=== PATIENT | female | born 1950 | race Caucasian/White ===

== ENCOUNTER → 2023-12-05 14:49 | Outpatient (REF) | payer MEDICARE, OTHER, SELFPAY | LOC: WDC 14:49 | PROVIDERS: ATTENDING PHYSICIAN Family Medicine | DX: M25.50 Pain in unspecified joint (principal); M85.89 Other specified disorders of bone density and structure, multiple sites; Z12.31 Encounter for screening mammogram for malignant neoplasm of breast | CPT/HCPCS: 77063; 77067; 77080 ==

== ENCOUNTER → 2024-02-02 12:28 | Outpatient (REF) | payer MEDICARE, OTHER, SELFPAY | LOC: HWRAD 12:28 | PROVIDERS: ATTENDING PHYSICIAN Nurse Practitioner Adult Health; FAMILY PHYSICIAN Family Medicine | DX: N95.0 Postmenopausal bleeding (principal) | CPT/HCPCS: 76830; 76856 ==

== ENCOUNTER → 2024-03-21 06:28 | Day surgery (SDC) | payer MEDICARE, OTHER, SELFPAY | LOC: GI 06:28 | PROVIDERS: ATTENDING PHYSICIAN Internal Medicine Gastroenterology; FAMILY PHYSICIAN Family Medicine | DX: Z12.11 Encounter for screening for malignant neoplasm of colon (principal); D12.3 Benign neoplasm of transverse colon; K57.30 Diverticulosis of large intestine without perforation or abscess without bleeding; K64.8 Other hemorrhoids; Z86.010 Personal history of colon polyps | CPT/HCPCS: 45385; 88305 ==

== ENCOUNTER → 2024-03-29 17:31 | Outpatient (REF) | payer MEDICARE, OTHER, SELFPAY | LOC: CLAB 17:31 | PROVIDERS: ATTENDING PHYSICIAN Obstetrics & Gynecology Gynecology | DX: N95.0 Postmenopausal bleeding (principal) | CPT/HCPCS: 88305 ==

== ENCOUNTER → 2024-06-10 17:56 | Outpatient (REF) | payer MEDICARE, OTHER, SELFPAY | LOC: RAD 17:56 | PROVIDERS: ATTENDING PHYSICIAN Nurse Practitioner Family; FAMILY PHYSICIAN Family Medicine | DX: M25.531 Pain in right wrist (principal) | CPT/HCPCS: 73110 ==

== ENCOUNTER → 2024-07-11 15:54 | Outpatient (REF) | payer MEDICARE, OTHER, SELFPAY | LOC: MRI 3T 15:54 | PROVIDERS: ATTENDING PHYSICIAN Specialist; FAMILY PHYSICIAN Family Medicine | DX: M17.12 Unilateral primary osteoarthritis, left knee (principal) | CPT/HCPCS: 73721 ==

== ENCOUNTER 2024-12-17 14:45 | Emergency (ER) | payer MEDICARE, OTHER, SELFPAY ==
[2024-12-17 15:02] VITALS: BP 168/70
--- NOTE | 2024-12-17 15:05 | ED.GENMED ---
ED Provider Triage
<Ronald Pineda PA-C - Last Filed: 12/17/24 15:08>
-
Patient seen by provider in Triage?: Seen in Triage
Attestation: A medical screening examination has been initiated by a qualified medical provider. Based on the assessment performed at this time, it has been determined that an emergent medical condition may exist and the patient has been informed
that further medical evaluation and possible additional diagnostic testing may be needed.
HPI: 74-year-old female presenting the ER for evaluation of dizziness that started around 10:00, describes a sensation to be as if everything is spinning. States closing her eyes makes symptoms worse. She is nauseous but no vomiting. Denies any
falls or traumatic injuries. No headache. Labs and EKG ordered. Meclizine and Zofran ordered for symptomatic relief.
GENERAL: Alert , in no apparent distress
EYE: No visual abnormalities.
NECK: Trachea midline
ENT: No visible abnormalities.
LUNGS: No acute respiratory distress
NEUROLOGICAL: Alert and oriented
SKIN: Skin intact. No visible changes.
MUSCULOSKELETAL: Moving extremities normally
PSYCH: Normal and appropriate interaction.
This is a medical evaluation conducted in person to initiate diagnostic evaluation and provide initial therapeutics. Please see further documentation by the treating clinician.
History of Present Illness
<Ronald Pineda PA-C - Last Filed: 12/17/24 15:08>
General
Chief Complaint: Dizziness
Time Seen by Provider: 12/17/24 17:50
<Reina Moore, MEDICAL TECHNICAL WRITER - Last Filed: 12/17/24 23:53>
General
Source: patient
Exam Limitations: none
Nursing documentation reviewed up to this point in time: agreed with
History of Present Illness
History of Present Illness:
74 yo female with history of balance problems, dizziness, headaches, and chronic neck pain, hypertension, HLD, GERD, hypothyroid, anemia, anxiety/depression presents stating 'I have been dizzy all day.' She states she woke at 10 AM with the room
spinning, nauseous but no vomiting. While she was in the waiting room her dizziness subsided when she walked back to her exam room and lay down it suddenly returned. She was given Zofran on initial triage evaluation which she states helped her
nausea.
She does have a headache but declines when Tylenol offered as she states she will take it at home, she does have a history of headaches and this is similar to her typical headache
She denies change in vision, denies imbalance or any trouble walking, denies any weakness. She denies ear pain, sore throat or any recent symptoms of infection.
Past History
<Ronald Pineda PA-C - Last Filed: 12/17/24 15:08>
Past History
ED Past Medical History: Hypothyroidism and Other (Reviewed documented. PMHXwith pt. All ok except glaucoma. States she had it 'fixed.')
ED Past Surgical History: Appendectomy, , Tonsilectomy and Other
Social History
Tobacco: Non-smoker
Personal:
Living: with family
Employment: Not employed
Family History
Family History: Other (Noncontributory)
Review of Systems
<Reina Moore, MEDICAL TECHNICAL WRITER - Last Filed: 12/17/24 23:53>
Review of Systems
Allergies reviewed?: Yes
All Other Systems: ROS reviewed and negative except as documented in HPI and ROS
Constitutional: Denies fever or fatigue
EENT: Denies sore throat
Cardiac: Denies chest pain or syncope
ABD/GI: Reports nausea; Denies abdominal pain, vomiting or diarrhea
: Denies dysuria, frequency, difficulty voiding or urgency
Musculoskeletal: Reports no symptoms
Skin: Reports no symptoms
Neurological: Reports dizzy and headache; Denies weakness or numbness
Phy Exam
<Reina Moore MEDICAL TECHNICAL WRITER - Last Filed: 12/17/24 23:53>
Physical Exam
Physical Exam:
GENERAL: No acute distress. A&Ox3.
CONSTITUTIONAL: Afebrile.
EYES: clear, conjunctivae normal, PERRLA, no notable nystagmus
ENMT: moist mucus membranes, Pharynx nl, TMs normal
RESPIRATORY: Regular respirations, nonlabored, lungs clear.
CARDIOVASCULAR: Regular rate and rhythm, no murmurs, no rubs.
GI: Soft, nontender, normal BS
MUSCULOSKELETAL: Moves with ease. Well perfused.
SKIN: Warm, dry, pink
PSYCH: Normal mood and affect. Well kept, interactive and appropriate
NEUROLOGIC: Awake, alert and oriented. No focal neurological deficits. Ambulates well with steady gait
Course
<Ronald Pineda PA-C - Last Filed: 12/17/24 15:08>
Orders/Labs/Results
Orders:
Orders
12/17/24 15:06
Electrocardiogram (*1) Urgent
Reason for Study: Vertigo / Dizzy
EKG- Treatment ONCE
12/17/24 15:07
Meclizine [Antivert] 25 mg PO NOW STA
Ondansetron Orally Disint [Zofran Odt (Orally Disintegrating)] 4 mg PO NOW STA
12/17/24 15:19
Complete Blood Count/With Diff Urgent
Comprehensive Metabolic Panel Urgent
Troponin I Urgent
Abnormal Lab Results
12/17/24
15:19
MCHC 32.7 L g/dL
(33.0-37.0)
Glucose 108 H mg/dl
(70-99)
12/17/24 15:19
12/17/24 15:19
Vital Signs
Initial and Last Documented VS:
Initial Vital Signs
Temp Pulse Resp BP Pulse Ox
97.6 F 77 18 168/70 99
12/17/24 15:02 12/17/24 15:02 12/17/24 15:02 12/17/24 15:02 12/17/24 15:02
Last Documented Vital Signs
Temp Pulse Resp BP Pulse Ox
98.1 F 70 18 129/64 98
12/17/24 18:00 12/17/24 18:00 12/17/24 18:00 12/17/24 18:00 12/17/24 18:00
<Reina Moore, MEDICAL TECHNICAL WRITER - Last Filed: 12/17/24 23:53>
Orders/Labs/Results
Orders:
Orders
12/17/24 15:06
Electrocardiogram (*1) Urgent
Reason for Study: Vertigo / Dizzy
EKG- Treatment ONCE
12/17/24 15:07
Meclizine [Antivert] 25 mg PO NOW STA
Ondansetron Orally Disint [Zofran Odt (Orally Disintegrating)] 4 mg PO NOW STA
12/17/24 15:19
Complete Blood Count/With Diff Urgent
Comprehensive Metabolic Panel Urgent
Troponin I Urgent
Abnormal Lab Results
12/17/24
15:19
MCHC 32.7 L g/dL
(33.0-37.0)
Glucose 108 H mg/dl
(70-99)
12/17/24 15:19
12/17/24 15:19
Vital Signs
Initial and Last Documented VS:
Initial Vital Signs
Temp Pulse Resp BP Pulse Ox
97.6 F 77 18 168/70 99
12/17/24 15:02 12/17/24 15:02 12/17/24 15:02 12/17/24 15:02 12/17/24 15:02
Last Documented Vital Signs
Temp Pulse Resp BP Pulse Ox
98.1 F 70 18 129/64 98
12/17/24 18:00 12/17/24 18:00 12/17/24 18:00 02/18/25 18:00 12/17/24 18:00
<Reina Moore MEDICAL TECHNICAL WRITER - Last Filed: 12/17/24 23:53>
MDM/Problems Addressed
Differential Diagnosis Includes:
BPPV, labyrinthitis, CVA, TIA
MDM/Problems Addressed:
74 yo female with history of balance problems, dizziness, headaches, and chronic neck pain, hypertension, HLD, GERD, hypothyroid, anemia, anxiety/depression presents stating 'I have been dizzy all day.' She states she woke at 10 AM with the room
spinning, nauseous but no vomiting. While she was in the waiting room her dizziness subsided when she walked back to her exam room and lay down it suddenly returned. She was given Zofran on initial triage evaluation which she states helped her
nausea.
She does have a headache but declines when Tylenol offered as she states she will take it at home, she does have a history of headaches and this is similar to her typical headache
She denies change in vision, denies imbalance or any trouble walking, denies any weakness. She denies ear pain, sore throat or any recent symptoms of infection.
CBC normal
CMP normal
Troponin normal
EKG NSR
6:45 PM:
After given meclizine 25 mg in triage patient still with dizziness but milder on initial visit. Good results with Linnette maneuver and patient is now symptom-free
Prescription for meclizine sent to her pharmacy
She has a prescheduled appointment with her PCP in 6 days
Pamphlet provided and [facility] to [facility]
<Reina Moore MEDICAL TECHNICAL WRITER - Last Filed: 12/17/24 23:53>
*Critical Care Note
Total Time (30-74mins, 75-104mins- exclusive of procedures): Not Applicable
ED Attending Note
<Ronald Pineda PA-C - Last Filed: 12/17/24 15:08>
-
Portions of this chart may have been created with voice recognition software.� Occasional wrong word or��sound alike� substitutions may have occurred due to the inherent limitations of voice recognition software.
Discharge Plan
Departure
Patient Disposition: Home (Routine Discharge)
Date of Disposition: 12/17/24
Time of Disposition: 18:45
Patient with high blood pressure during this ER visit?: No
Condition: Good
Discharge Problem:
Benign paroxysmal positional vertigo
Instructions: Vertigo (a type of dizziness), Exercises (maneuvers) for benign paroxysmal positional vertigo
Prescriptions:
New
meclizine 25 mg tablet
25 mg PO BID PRN (Reason: dizziness) Qty: 20 0RF
No Action
Vitamin D
50 mcg PO PRN PRN (Reason: occas)
melatonin-pyridoxine HCl (B6) 1 EACH tablet
5 mg PO HS
fluoxetine 20 MG capsule
40 mg PO DAILY Qty: 0 0RF
multivitamin [One Daily Multivitamin] 1 EACH tablet
1 ea PO PRN PRN (Reason: occas)
levothyroxine [Synthroid] 137 MCG tablet
137 mcg PO DAILY
lysine 1,000 MG tablet
1,000 mg PO DAILY PRN (Reason: unk)
meloxicam 7.5 MG tablet
7.5 mg PO BID
loratadine [Allergy Relief (loratadine)] 10 MG tablet
10 mg PO DAILY
ibuprofen-diphenhydramine HCl [Advil PM Liqui-Gels] 1 EACH capsule
1 ea PO PRN PRN (Reason: pain)
lutein 20 MG tablet
20 mg PO PRN PRN (Reason: occassioanl)
Genteal Pf Eye Drops
2 - 3 drops ophthalmic (eye) BID
Milk Thistle
140 mcg PO PRN PRN (Reason: occas)
rosuvastatin 5 MG tablet
5 mg PO Q48H
mupirocin 1 APPLIC ointment
1 applic intranasal BID Qty: 1 0RF
Patient Comments:
patient applied 0630 03/13/19 b/l nostrils
sennosides [senna] 1 TABLET tablet
2 tab PO BID 0RF
acetaminophen 325 MG tablet
325 mg PO QID 0RF
hydrocodone-acetaminophen 1 TABLET tablet
1 tab PO Q4HPRN PRN (Reason: moderate-severe pain) Qty: 35 0RF
Rx Instructions:
dx vincent
ongoing therpay
1 tab mdoerate pain, or 2 if pain severe
magnesium hydroxide 30 ML suspension
30 ml PO DAILYPRN PRN (Reason: constipation) 0RF
aspirin 325 MG tablet,delayed release (DR/EC)
325 mg PO DAILY 0RF
cyclobenzaprine 10 MG tablet
10 mg PO BIDPRN PRN (Reason: muscle tightness/spasm) Qty: 10 0RF
Referrals:
Luis Enrique Sibley DO [Family Provider] - Keep scheduled appt
Activity Restrictions/Additional Instructions:
As we discussed, you most likely have vertigo. I sent a prescription to your pharmacy for meclizine
Keep your appointment with your primary doctor on Monday.
Return here immediately if your dizziness gets worse despite the meclizine and the maneuvers that I showed you.
Call the [facility]ibular clinic tomorrow and make next available appointment
Interventions
Interventions:
*Risk Screen - Suicide Last Done: 12/17/24 18:56
*General Assessment Last Done: 12/17/24 18:15
*Neglect/Abuse Screening Last Done: 12/17/24 18:56
ED- Fall Risk Assessment Last Done: 12/17/24 18:58
*ED COVID-19 Vaccine History Last Done: 12/17/24 15:02
*Nursing Disposition Last Done: 12/17/24 18:56
ED- Neurological Assessment Last Done: 12/17/24 17:29
ED- Cardiac Assessment Last Done: 12/17/24 18:56
ED Swallowing Screen Last Done: 12/17/24 18:27
Discharge Date and Time
Discharge Date/Time: 12/17/24 18:58
Print Language: YORUBA
[2024-12-17] MEDS: ZOFRAN ODT (ORALLY DISINTEGRATING) 4 MG PO (15:13)
[2024-12-17] MEDS: ANTIVERT 25 MG PO (15:13)
[2024-12-17 15:36] LABS: % Basophils 0.3 % (0-2); % Eosinophils 1.5 % (0-6); % Immature Granulocytes 0.4 % (0-0.5); % Monocytes 6.6 % (1.7-9.3); % Neutrophils 70.2 % (42.2-75.2); Absolute Eosinophils 0.1 10^3/uL (0-0.7); Absolute Lymphocytes 1.4 10^3/uL (1.2-3.4); Absolute Monocytes 0.5 10^3/uL (0.1-0.6); Absolute Neutrophils 4.8 10^3/uL (1.4-6.5); Hemoglobin 14.7 g/dL (12.0-16.0); Mean Corp Hgb Conc. 32.7 g/dL (33.0-37.0); Mean Corpuscular Hgb 29.5 pg (27.0-31.0); Mean Corpuscular Volume 90.4 fL (81.0-99.0); Mean Platelet Volume 9.4 fL (7.4-10.4); Nucleated Red Blood Cells % 0 %; Platelet Count 225 10^3/uL (130-400); Red Blood Cell Count 4.98 10^6/uL (4.20-5.40); Red Cell Dist. Width 13.5 % (11.5-14.5); White Blood Cell Count 6.9 10^3/uL (4.8-10.8)
[2024-12-17 15:40] LABS: ALT (SGPT) 22 U/L (0-35); AST (SGOT) 22 U/L (14-36); Albumin 4.7 g/dl (3.5-5.0); Alkaline Phosphatase 59 U/L (38-126); Blood Urea Nitrogen 11 mg/dl (7-17); Calcium 9.7 mg/dl (8.4-10.2); Carbon Dioxide 27 mmol/L (22-30); Chloride 102 mmol/L (98-107); Glucose 108 mg/dl (70-99); Potassium 5.1 mmol/L (3.5-5.1); Sodium 137 mmol/L (135-145); Total Bilirubin 0.7 mg/dl (0.2-1.3); Total Protein 7.2 g/dl (6.3-8.2); eGFR > 60.00
[2024-12-17 15:51] LABS: Troponin I < 0.012 ng/ml
[2024-12-17 17:22] VITALS: BP 130/62
[2024-12-17 18:00] VITALS: BP 129/64
== END 2024-12-17 18:58 | disposition home or self-care (01) ==
LOC: EMR 14:45
PROVIDERS: Physician Assistant Medical; EMERGENCY PHYSICIAN Emergency Medicine; FAMILY PHYSICIAN Family Medicine
DX: H81.10 Benign paroxysmal vertigo, unspecified ear (principal)
CPT/HCPCS: 99284; 80053; 84484; 85025; 93005

== ENCOUNTER 2025-03-19 12:55 | Outpatient (RCR) | payer MEDICARE, OTHER, SELFPAY | END 2025-03-19 23:59 | disposition home or self-care (01) | LOC: RPT 12:55 | PROVIDERS: ATTENDING PHYSICIAN Family Medicine | DX: R42 Dizziness and giddiness (principal); Z73.6 Limitation of activities due to disability | CPT/HCPCS: 97112; 97161 ==

== ENCOUNTER 2025-04-03 14:56 | Outpatient (RCR) | payer MEDICARE, OTHER, SELFPAY | END 2025-04-09 13:05 | disposition home or self-care (01) | LOC: RPT 14:56 | PROVIDERS: ATTENDING PHYSICIAN Family Medicine | DX: R42 Dizziness and giddiness (principal); Z73.6 Limitation of activities due to disability | CPT/HCPCS: 97112 ==